=== PATIENT | male | born 1970 | race Two or more races ===

== ENCOUNTER 2020-09-01 05:57 | Emergency (ER) | payer BC ==
[2020-09-01 06:20] VITALS: BMI 25.1
[2020-09-01 06:58] LABS: BASO % 0.9 % (0-2.0); EOS % 2.9 % (0-4.5); HEMATOCRIT 42.4 % (35.4-49); HEMOGLOBIN 14.4 GM/dL (11.7-16.9); LYMPH % 57.8 % (8-40); MCH 31.2 pg (25.7-33.7); MEAN CELL VOLUME 91.7 fl (80-96); MEAN PLT VOLUME 9.3 fl (7.5-11.1); MONO % 12.4 % (3.8-10.2); PLATELET COUNT 233 K/MM3 (134-434); RBC 4.63 M/mm3 (4.00-5.60); RDW 13.1 % (11.9-15.9); WHITE BLOOD COUNT 2.9 K/mm3 (4.0-10.0)
[2020-09-01 07:09] VITALS: BP 144/93; PULSE 65; TEMP 98
[2020-09-01 07:16] LABS: CHLORIDE 106 mmol/L (98-107); SODIUM 139 mmol/L (136-145)
[2020-09-01 07:19] LABS: BLOOD UREA NITROGEN 12.5 mg/dL (7-18); CALCIUM 8.9 mg/dL (8.5-10.1)
[2020-09-01 07:20] LABS: ANION GAP 4 MMOL/L (8-16); CO2 29 mmol/L (21-32); GLUCOSE,RANDOM 99 mg/dL (74-106)
[2020-09-01 07:23] LABS: CREATININE 0.8 mg/dL (0.55-1.3); SGOT/AST 27 U/L (15-37); SGPT/ALT 41 U/L (13-61)
[2020-09-01 07:25] LABS: BILIRUBIN,TOTAL 0.6 mg/dL (0.2-1); TOT PROT 7.6 g/dl (6.4-8.2)
[2020-09-01 07:26] LABS: ALK PHOS 96 U/L (45-117)
== END 2020-09-01 07:52 | disposition home or self-care (01) ==
LOC: JER 05:57
DX: R07.9 Chest pain, unspecified (principal)
CPT/HCPCS: 36415; 71046-TC-FY; 80053; 82550; 82553; 84484; 85025; 93005; 93010; 99285-25